=== PATIENT | female | born 1990 | race Caucasian/White ===

== ENCOUNTER 2022-01-23 10:33 | Outpatient (CLI) | payer OTHER, SELFPAY ==
--- NOTE | ~2022-01-23 | US_ITS ---
EXAMINATION: US OB <= 14 weeks fetus DATE: 01/23/2022 11:14 INDICATION: of unknown trimester TECHNIQUE: Real-time pelvic transabdominal and transvaginal ultrasound was performed. COMPARISON: None. FINDINGS: The uterus measures 11.2 x 8.6 x 6.8 cm. There is an intrauterine gestational sac. A yolk sac is identified. heart motion is identified measuring 165 beats per minute (bpm) by M-mode Do ppler. The crown rump length measures 3.7 cm , which correlates with an estimated gestational a ge of 10 weeks and 4 day(s) (+/-) 7 day(s). The ovaries are not visualized however no adnexal abnormality is seen. There is no free fluid in the pelvis. IMPRESSION: 1. Live intrauterine with an estimated gestational age of 10 weeks and 4 day(s) (+/-) 7 day (s) and an estimated delivery date of 08/17/2022. Reviewed, dictated and finalized at location F. ICAL MANAGER IMPRESSION: 1. Live intrauterine with an estimated gestational age of 10 weeks an d 4 day(s) (+/-) 7 day(s) and an estimated delivery date of 08/17/2022.
== END 2022-01-23 10:34 | disposition home or self-care (01) ==
LOC: ANHIMG 10:38
PROVIDERS: Visit Provider Nurse Practitioner
DX: Z36.87 Encounter for antenatal screening for uncertain dates (principal); Z3A.10 10 weeks gestation of pregnancy
CPT/HCPCS: 76801

== ENCOUNTER 2022-03-03 19:09 | Emergency (ER) | payer OTHER, SELFPAY ==
[2022-03-03 19:12] VITALS: BP 139/68; PULSE 90; RESP 16; TEMP 36.1; O2SAT 100
[2022-03-03] MEDS: ACETAMINOPHEN 500 MG TABLET 1000 MG PO (20:11)
[2022-03-03 20:29] LABS: Add Urine Microscopic? YES; Appearance Urine Cloudy (Clear); Bilirubin Urine Negative (Negative); Blood Urine 2+ (Negative); Color Urine Yellow (Yellow); Glucose Urine UA Negative (Negative); Ketones Urine Trace mg/dL (Negative); Leukocyte Esterase Ur Negative LEU/UL (Negative); Mucus Urine Rare /lpf; Nitrate Urine Negative (Negative); Protein Urine Negative (Negative); RBC Urine 0-2 /hpf (0-2); Specific Grav Ur 1.025 (1.001-1.035); Squamous Epithelial Cell Urine Many /hpf (Few); Urobilinogen Urine Negative mg/dL (<2.0); WBC Urine 0-3 /hpf
--- NOTE | 2022-03-03 20:46 | ED.GENADULT ---
HPI - General Adult General Chief complaint: Unspecified Stated complaint: GROIN PAIN. 16WKS PREG Time Seen by Provider: 03/03/22 19:23 History of Present Illness HPI narrative: Patient is a 31-year-old female who presents ER with some pelvic discomfort. Ongoing for last couple days. Unsure if she pulled a muscle in her groin. Worse with bending and walking. Occasionally radiates into the legs. Has not tried any pain medication. No vaginal bleeding or discharge. No abdominal or lower pelvic pain. Patient is 16 weeks . G4, P0. Follows with Dr. Johansen. Patient reports she is recently been on vacation and is done a lot of walking on sand which may have strained some muscles. She also reports she had a fall out of a hammock without injury to her abdomen. She has a known/documented IUP. Related Data Allergies Allergy/AdvReac Type Severity Reaction Status Date / Time NKDA Allergy Unknown Uncoded 05/25/03 13:30 NKFA Allergy Unknown Uncoded 05/25/03 13:30 Review of Systems Review of Systems: All systems reviewed & are unremarkable except as noted in HPI and below Gastrointestinal: Gastrointestinal: Denies abdominal pain, Denies nausea and Denies vomiting Genitourinary: Genitourinary: Denies abnormal vaginal bleeding, Denies nocturia, Denies pelvic pain, Denies vaginal discharge and Denies vaginal pruritus Musculoskeletal: Musculoskeletal: Denies back pain and Denies myalgias Integumentary/Breasts: Skin/Breast: Denies erythema, Denies rash and Denies skin pain Neurologic: Denies focal weakness and Denies numbness PMFSH Past Medical History Medical History (Updated 03/03/22 @ 20:54 by Luis F Mancera MD) Healthy female adult Surgical History Surgical History (Updated 03/03/22 @ 20:54 by Luis F Mancera MD) No pertinent past surgical history Exam Narrative: GENERAL: Well-appearing, well-nourished, and in no acute distress. HEAD: Normocephalic, atraumatic. CHEST: Clear to auscultation. No respiratory distress. HEART: Regular rate and rhythm. Normal peripheral pulses. ABDOMEN: Soft, nontender, nondistended. : Normal-appearing external genitalia, unremarkable speculum exam with normal-appearing cervix and physiologic discharge. No bleeding. No reproducible tenderness with palpation along the perineum or external genitalia. EXTREMITIES: Normal range of motion. No edema. SKIN: Warm, dry, no rash. NEURO: Alert and oriented x3. Course Course Emergency Course: Unremarkable exam. Tylenol given for pain. Patient may have some resultant muscle discomfort from her recent trip. Recommend scheduled Tylenol and follow-up with her [facility]. Vital Signs Vital signs: Vital Signs Temperature 97 F L 03/03/22 19:12 Pulse Rate 90 03/03/22 19:12 Respiratory Rate 16 03/03/22 19:12 Blood Pressure 139/68 03/03/22 19:12 Pulse Oximetry 100 03/03/22 19:12 Temperature 97 F L 03/03/22 19:12 Pulse Rate 90 03/03/22 19:12 Respiratory Rate 16 03/03/22 19:12 Blood Pressure 139/68 03/03/22 19:12 Pulse Oximetry 100 03/03/22 19:12 Medical Decision Making Vital Signs Vital Signs: Vital Signs Temperature 97 F L 03/03/22 19:12 Pulse Rate 90 03/03/22 19:12 Respiratory Rate 16 03/03/22 19:12 Blood Pressure 139/68 03/03/22 19:12 Pulse Oximetry 100 03/03/22 19:12 Temperature 97 F L 03/03/22 19:12 Pulse Rate 90 03/03/22 19:12 Respiratory Rate 16 03/03/22 19:12 Blood Pressure 139/68 03/03/22 19:12 Pulse Oximetry 100 03/03/22 19:12 Lab Data Labs: Lab Results 03/03/22 Range/Units 19:59 Urine Color Yellow (Yellow) Urine Appearance Cloudy H (Clear) Urine pH 5.0 (5.0-9.0) Ur Specific Hume 1.025 (1.001-1.035) Urine Protein Negative (Negative) mg/dL Urine Glucose (UA) Negative (Negative) mg/dL Urine Ketones Trace (Negative) mg/dL Ur Blood (Man) 2+ H (Negative) Urine Nitrate Negative (Negative) Urine B
[2022-03-03 20:57] VITALS: BP 141/88; PULSE 88; RESP 16; O2SAT 97
== END 2022-03-03 20:59 | disposition home or self-care (01) ==
PROVIDERS: Emergency Provider Emergency Medicine
DX: O26.892 Other specified pregnancy related conditions, second trimester (principal); R10.32 Left lower quadrant pain; R10.31 Right lower quadrant pain; Z3A.16 16 weeks gestation of pregnancy
CPT/HCPCS: 81001; 99283; A9270

== ENCOUNTER 2022-04-24 10:07 | Outpatient (CLI) | payer OTHER, SELFPAY ==
[2022-04-24 11:56] LABS: Free T4 Free Thyroxine 0.73 ng/mL (0.78-2.19)
== END 2022-04-24 10:08 | disposition home or self-care (01) ==
LOC: ANHLAB 10:10
PROVIDERS: Visit Provider Obstetrics & Gynecology Gynecology
DX: R94.6 Abnormal results of thyroid function studies (principal)
CPT/HCPCS: 36415; 84439; 84443

== ENCOUNTER 2022-05-22 11:11 | Outpatient (CLI) | payer OTHER, SELFPAY ==
[2022-05-22 11:27] LABS: Hematocrit 32.8 % (37.0-47.0)
[2022-05-22 12:30] LABS: HIV 1/2 Ab P24 Ag Result Negative (Negative)
[2022-05-22 12:34] LABS: Hemoglobin A1C 5.6 % (<5.7)
[2022-05-22 12:39] LABS: Vitamin D 25 Hydroxy 25.8 ng/mL
== END 2022-05-22 11:12 | disposition home or self-care (01) ==
LOC: ANHLAB 11:13
PROVIDERS: Visit Provider Obstetrics & Gynecology Gynecology
DX: Z34.93 Encounter for supervision of normal pregnancy, unspecified, third trimester (principal); Z3A.00 Weeks of gestation of pregnancy not specified
CPT/HCPCS: 36415; 82306; 83036; 85014; 85018; 86703; G0432

== ENCOUNTER 2022-06-11 10:57 | Outpatient (CLI) | payer OTHER, SELFPAY ==
[2022-06-11 11:22] VITALS: BP 138/69; PULSE 111
[2022-06-11 11:31] VITALS: BP 110/68; PULSE 100
[2022-06-11 11:46] VITALS: BP 124/62; PULSE 95
[2022-06-11 12:01] VITALS: BP 120/74; PULSE 102
[2022-06-11 12:19] VITALS: BP 138/69; PULSE 100
[2022-06-11 12:29] LABS: Appearance Urine Slightly Cloudy (Clear); Basophils Percent Auto 0.2 % (0.2-1.2); Bilirubin Urine Negative (Negative); Blood Urine Trace-lysed (Negative); Color Urine Yellow (Yellow); Eosinophils Absolute Auto 0.1 K/mm3 (0-0.3); Eosinophils Percent Auto 0.8 % (0-4.4); Glucose Urine UA Negative (Negative); Hematocrit 35.4 % (37.0-47.0); Hemoglobin 11.4 g/dL (12.0-15.0); Immature Granulocyte Absolute 0.11 K/mm3 (0.00-0.031); Immature Granulocyte Percent A 0.8 % (0-0.5); Ketones Urine Trace mg/dL (Negative); Leukocyte Esterase Ur Negative LEU/UL (NEGATIVE); Lymphocytes Absolute Auto 1.87 K/mm3 (0.9-3.2); Lymphocytes Percent Auto 13.4 % (18.3-44.2); Mean Corpuscular HGB Conc 32.2 g/dl (32-36); Mean Corpuscular Hemoglobin 29.8 pg (26-34); Mean Corpuscular Volume 92.7 fl (80-100); Mean Platelet Volume 9.2 fl (7.4-10.4); Monocytes Absolute Auto 0.8 K/mm3 (0.1-0.6); Monocytes Percent Auto 5.5 % (2.6-8.5); Neutrophils Absolute Auto 11.1 K/mm3 (1.3-6.7); Neutrophils Percent Auto 79.3 % (45.5-73.1); Nitrate Urine Negative (Negative); Platelet Count Result 270 k/mm3 (150-375); Protein Urine Trace mg/dL (Negative); Red Blood Count 3.82 M/mm3 (4.2-5.4); Red Cell Distribution Width 14.3 % (11.5-14.5); Specific Grav Ur 1.025 (1.001-1.035); Urobilinogen Urine 0.2 mg/dL (<2.0)
[2022-06-11 12:35] LABS: Creatinine Urine 105.5 mg/dL; Total Protein Urine Random 17 mg/dL; Ur Ttl Prot Creatinine Ratio 0.16 mg/mg (0-0.20)
[2022-06-11 12:39] LABS: Amorphous Sediment Urine Few; Bacteria Urine Trace /hpf; Mucus Urine Few /lpf; Squamous Epithelial Cell Urine Moderate /hpf (Few); WBC Urine 0-3 /hpf (0-3)
[2022-06-11 12:41] LABS: Add Urine Microscopic? YES; Alanine Aminotransferase 17 U/L (6-35); Albumin Level 3.8 g/dL (3.5-5.1); Alkaline Phosphatase 128 U/L (38-126); Anion Gap 3 mmol/L (8-16); Aspartate Amino Transferase 15 U/L (14-36); Bilirubin,Total 0.2 mg/dL (0.2-1.3); Blood Urea Nitrogen 6 mg/dL (7-17); Calcium 9.5 mg/dL (8.4-10.2); Carbon Dioxide 28 mmol/L (22-30); Chloride 104 mmol/L (98-107); Estimated Glomerular Filt Rate > 60; Glucose 145 mg/dL (65-110); Potassium 3.6 mmol/L (3.4-5.0); Sodium 135 mmol/L (137-145)
[2022-06-11 14:50] VITALS: BP 138/69; PULSE 100
--- NOTE | 2022-06-11 15:06 | PC.NURSE ---
Addendum entered by Kenisha Manzano RN 06/11/22 15:08: Actual time 1339 Original Note: Called Dr. Johansen with lab results, blood pressure, and reactive NST. Orders received to D/C with 24 hour urine.
== END 2022-06-11 14:16 | disposition home or self-care (01) ==
LOC: ANHOBOP 11:05 → ANHOBPP 11:05
PROVIDERS: Visit Provider Obstetrics & Gynecology Gynecology
DX: O36.8190 Decreased fetal movements, unspecified trimester, not applicable or unspecified (principal); Z3A.00 Weeks of gestation of pregnancy not specified
CPT/HCPCS: 36415; 59025; 80053; 81001; 82570; 84156; 84550; 85025; 87086; 99199

== ENCOUNTER 2022-06-12 13:54 | Outpatient (NON) | payer OTHER, SELFPAY ==
[2022-06-12 14:12] VITALS: BMI 53.8
[2022-06-12 15:11] LABS: Collection Time Urine 24 HOURS
[2022-06-12 15:13] LABS: Patient Weight 343 Lbs
[2022-06-12 15:14] LABS: Total Volume 24 Hour Urine 2499 ml
[2022-06-12 15:26] LABS: Creatinine Clearance Urine 136.2 ml/min (75-125); Total Protein Urine 24 Hr 499 mg/24hr (28-141); Total Protein Urine Random 20 mg/dL
== END 2022-06-12 13:55 | disposition home or self-care (01) ==
LOC: ANHOBOP 13:59
PROVIDERS: Visit Provider Obstetrics & Gynecology Gynecology
DX: R51.9 Headache, unspecified (principal)
CPT/HCPCS: 81050; 82575; 84156

== ENCOUNTER 2022-07-06 09:45 | Outpatient (RCR) | payer OTHER, SELFPAY ==
[2022-06-29 12:20] VITALS: BP 133/72; PULSE 88
--- NOTE | ~2022-07-06 | US_ITS ---
EXAMINATION: US OB BPP wo non-stress DATE: 06/29/2022 12:24 INDICATION: Gestational diabetes and hypertension, third trimester TECHNIQUE: Real-time pelvic ultrasound was performed. The interpreting radiologist was not present fo r the study. COMPARISON: None. FINDINGS: There is a single living fetus in breech presentation. The placenta is anterior. heart rate is 148 beats per minute (bpm). Biophysical profile performed by the technologist: breathing (30 sec sustained breathing in 30 minutes): 2 out of 2 movement (3 gross body movements in 30 minutes): 2 out of 2 tone (one episode of paxpxgj-ciojvrazo-qulfukd limb movement): 2 out of 2 Amniotic fluid pocket (2 cm): 2 out of 2 Total score: 8 out of 8 IMPRESSION: 1. Single living fetus in breech presentation. 2. Biophysical profile 8 out of 8. Reviewed, dictated and finalized at location L.
[2022-07-06 10:39] VITALS: BP 128/63; PULSE 89
== END 2022-08-29 10:06 | disposition home or self-care (01) ==
LOC: ANHOBOP 09:45
PROVIDERS: Visit Provider Obstetrics & Gynecology Gynecology
DX: O24.419 Gestational diabetes mellitus in pregnancy, unspecified control (principal); O16.3 Unspecified maternal hypertension, third trimester; O14.93 Unspecified pre-eclampsia, third trimester; Z3A.34 34 weeks gestation of pregnancy
CPT/HCPCS: 59025; 76819

== ENCOUNTER 2022-07-20 11:07 | Outpatient (CLI) | payer OTHER, SELFPAY ==
[2022-07-20 11:31] VITALS: BP 132/77; PULSE 89
[2022-07-20 11:42] LABS: Basophils Percent Auto 0.3 % (0.2-1.2); Eosinophils Absolute Auto 0.1 K/mm3 (0-0.3); Eosinophils Percent Auto 0.5 % (0-4.4); Hematocrit 32.7 % (37.0-47.0); Hemoglobin 10.8 g/dL (12.0-15.0); Immature Granulocyte Absolute 0.04 K/mm3 (0.00-0.031); Immature Granulocyte Percent A 0.3 % (0-0.5); Lymphocytes Absolute Auto 1.55 K/mm3 (0.9-3.2); Lymphocytes Percent Auto 12.9 % (18.3-44.2); Mean Corpuscular Hemoglobin 30.1 pg (26-34); Mean Corpuscular Volume 91.1 fl (80-100); Mean Platelet Volume 9.6 fl (7.4-10.4); Monocytes Absolute Auto 0.9 K/mm3 (0.1-0.6); Monocytes Percent Auto 7.6 % (2.6-8.5); Neutrophils Absolute Auto 9.4 K/mm3 (1.3-6.7); Neutrophils Percent Auto 78.4 % (45.5-73.1); Platelet Count Result 239 k/mm3 (150-375); Red Blood Count 3.59 M/mm3 (4.2-5.4); Red Cell Distribution Width 14.4 % (11.5-14.5)
[2022-07-20 11:46] VITALS: BP 128/70; PULSE 82
[2022-07-20 11:55] LABS: Alanine Aminotransferase 18 U/L (6-35); Albumin Level 3.4 g/dL (3.5-5.1); Alkaline Phosphatase 151 U/L (38-126); Anion Gap 9 mmol/L (8-16); Aspartate Amino Transferase 16 U/L (14-36); Bilirubin,Total 0.2 mg/dL (0.2-1.3); Blood Urea Nitrogen 6 mg/dL (7-17); Calcium 9.2 mg/dL (8.4-10.2); Carbon Dioxide 24 mmol/L (22-30); Chloride 100 mmol/L (98-107); Estimated Glomerular Filt Rate > 60; Glucose 133 mg/dL (65-110); Potassium 3.2 mmol/L (3.4-5.0); Sodium 133 mmol/L (137-145); Uric Acid 3.6 mg/dL (2.5-7.5)
[2022-07-20 12:01] VITALS: BP 152/81; PULSE 87
[2022-07-20 12:16] VITALS: BP 132/84; PULSE 82
--- NOTE | 2022-07-20 12:32 | PC.NURSE ---
Spoke with Dr. Johansen, BP's and labs reviewed. orders to discharge to home with precautions.
== END 2022-07-20 12:33 | disposition home or self-care (01) ==
LOC: ANHOBOP 11:12 → ANHOBPP 11:12
PROVIDERS: Visit Provider Obstetrics & Gynecology Gynecology
DX: O13.9 Gestational [pregnancy-induced] hypertension without significant proteinuria, unspecified trimester (principal); Z3A.00 Weeks of gestation of pregnancy not specified
CPT/HCPCS: 36415; 80053; 84550; 85025; 99199

== ENCOUNTER 2022-07-26 05:02 | Inpatient (IN) | payer OTHER, SELFPAY ==
[2022-07-26] VITALS (210 sets, daily range): BP systolic 90–177; BP diastolic 39–107; PULSE 68–111; TEMP 36.1–36.9; O2SAT 94–100; BMI 55.6
--- NOTE | 2022-07-26 05:02 | LDADM ---
This patient, Nighat Mccauley, was admitted to Labor/Delivery/Recovery 105 on 07/26/22 at 05:02. Plans for labor, pain management and were discussed with patient. Patient/family oriented to hospital policies and general routines including ID bracelet, bed and alarms, visiting hours, pain management, procedures, bathroom and other care routines, personal items, smoking policy, room service/diet and guest tray routines, security routines, and visiting hours. Patient/Family are encouraged to report perceived risks to care and to ask questions if they do not understand what they are told or what they should do. See OBIX for further documentation.
[2022-07-26 06:30] LABS: Basophils Percent Auto 0.2 % (0.2-1.2); Eosinophils Absolute Auto 0.1 K/mm3 (0-0.3); Eosinophils Percent Auto 0.7 % (0-4.4); Hematocrit 32.5 % (37.0-47.0); Hemoglobin 10.5 g/dL (12.0-15.0); Immature Granulocyte Absolute 0.07 K/mm3 (0.00-0.031); Immature Granulocyte Percent A 0.5 % (0-0.5); Lymphocytes Percent Auto 11.9 % (18.3-44.2); Mean Corpuscular HGB Conc 32.3 g/dl (32-36); Mean Corpuscular Hemoglobin 29.1 pg (26-34); Mean Platelet Volume 10.1 fl (7.4-10.4); Monocytes Percent Auto 7.4 % (2.6-8.5); Neutrophils Absolute Auto 10.7 K/mm3 (1.3-6.7); Neutrophils Percent Auto 79.3 % (45.5-73.1); Platelet Count Result 243 k/mm3 (150-375); Red Blood Count 3.61 M/mm3 (4.2-5.4); Red Cell Distribution Width 14.5 % (11.5-14.5); White Blood Count 13.4 K/mm3 (4.5-10.0)
[2022-07-26] MEDS: OXYTOCIN 30 UNITS/NS 500 ML 30 UNITS/500 ML BAG 6 UNITS IV CONT (06:42)
[2022-07-26] MEDS: LACTATED RINGERS 1,000 ML 125 ML IV CONT ×5 (06:42→22:25)
[2022-07-26 06:43] LABS: Alanine Aminotransferase 16 U/L (6-35); Albumin Level 3.2 g/dL (3.5-5.1); Alkaline Phosphatase 135 U/L (38-126); Anion Gap 7 mmol/L (8-16); Aspartate Amino Transferase 23 U/L (14-36); Bilirubin,Total 0.5 mg/dL (0.2-1.3); Blood Urea Nitrogen 7 mg/dL (7-17); Calcium 9.4 mg/dL (8.4-10.2); Carbon Dioxide 25 mmol/L (22-30); Chloride 102 mmol/L (98-107); Estimated CRCL calculation 260 ml/min; Estimated Glomerular Filt Rate > 60; Glucose 150 mg/dL (65-110); Potassium 3.7 mmol/L (3.4-5.0); Sodium 134 mmol/L (137-145); Uric Acid 3.2 mg/dL (2.5-7.5)
[2022-07-26 07:19] LABS: Rapid Plasma Reagin Non-Reactive (NonReactive)
--- NOTE | 2022-07-26 07:45 | WPDOBADMIT ---
Obstetrics - Admit Note Admission Note: record reviewed. No pertinent additions to the history and/or any subsequent changes in the physical findings that are not consistent with the expected course of the were found. Additions to the history and/or subsequent changes in the physical findings follow. Here for MIL at 36 6/7 wks for preeclampsia and GDMA2. Cervix 50/-2 anterior. AROM with clear fluid. FHTs reactive
[2022-07-26 08:38] LABS: Glucose Point of Care 104 mg/dl (65-105)
[2022-07-26 09:48] LABS: Amphetamine Screen Urine Negative (Negative); Barbiturate Screen Urine Negative (Negative); Benzodiazepines Screen Urine Negative (Negative); Cannabinoid Screen Urine Positive (Negative); Cocaine Screen Urine Negative (Negative); Methadone Screen Urine Negative (Negative); Opiate Screen Urine Negative (Negative); Phencyclidine Screen Urine Negative (Negative)
--- NOTE | 2022-07-26 10:40 | WPDANESEPP ---
Anes - Eval Pre Procedure Procedure: Epidural catheter placement Date/Time: 07/26/22 10:40 Surgeon: juan luis Preop Diagnosis: Pain during labor Pre Op Diagnosis: IOL Patient Data Age: 32 Gender: F Height: 1.7 m Weight: 161.25 kg Last Vital Signs Pulse 88 07/26/22 10:31 BP 153/80 H 07/26/22 10:31 O2 Del Method Room Air 07/26/22 06:02 Allergies Allergy/AdvReac Type Severity Reaction Status Date / Time NKDA Allergy Unknown Uncoded 05/25/03 13:30 NKFA Allergy Unknown Uncoded 05/25/03 13:30 Home Medications Medication Instructions Recorded Confirmed Type insulin NPH isoph U-100 human 100 48 ml subcut HS 06/11/22 07/26/22 History unit/mL subcutaneous suspension (Humulin N NPH U-100 Insulin (isophane susp)) valacyclovir 500 mg tablet 500 mg PO BID 07/06/22 07/26/22 History prenat.vits,dalia,ypj-cnai-vzvnn 1 tablet PO DAILY 07/17/22 07/26/22 History famotidine 20 mg tablet 20 mg PO PRN PRN Heartburn 07/26/22 07/26/22 History Laboratory Tests 07/26/22 07/26/22 07/26/22 06:21 06:21 06:21 WBC 13.4 K/mm3 H K/mm3 (4.5-10.0) RBC 3.61 M/mm3 L M/mm3 (4.2-5.4) Hgb 10.5 g/dL L g/dL (12.0-15.0) Hct 32.5 % L % (37.0-47.0) MCV 90.0 fl fl (80-100) MCH 29.1 pg pg (26-34) MCHC 32.3 g/dl g/dl (32-36) RDW 14.5 % % (11.5-14.5) Plt Count 243 k/mm3 k/mm3 (150-375) MPV 10.1 fl fl (7.4-10.4) Immature Gran % (Auto) 0.5 % % (0-0.5) Neut % (Auto) 79.3 % H % (45.5-73.1) Lymph % (Auto) 11.9 % L % (18.3-44.2) [place] % (Auto) 7.4 % % (2.6-8.5) Eos % (Auto) 0.7 % % (0-4.4) Baso % (Auto) 0.2 % % (0.2-1.2) Lymph # (Auto) 1.60 K/mm3 K/mm3 (0.9-3.2) [place] # (Auto) 1.0 K/mm3 H K/mm3 (0.1-0.6) Eos # (Auto) 0.1 K/mm3 K/mm3 (0-0.3) Baso # (Auto) 0.0 K/mm3 K/mm3 (0.0-0.1) Abs Immat Gran (auto) 0.07 K/mm3 H K/mm3 (0.00-0.031) Absolute Neuts (auto) 10.7 K/mm3 H K/mm3 (1.3-6.7) Absolute Nucleated RBC 0.0 K/mm3 K/mm3 (0.0-0.012) Nucleated RBC % 0.0 % % (0.0-0.2) Sodium Potassium Chloride Carbon Dioxide Anion Gap BUN Creatinine Estim Creat Clear Calc Estimated GFR Glucose POC Capillary Glucose Uric Acid Calcium Total Bilirubin AST ALT Alkaline Phosphatase Total Protein Albumin Urine Opiates Screen Urine Methadone Screen Ur Barbiturates Screen Ur Phencyclidine Scrn Ur Amphetamine Screen U Benzodiazepines Scrn Urine Cocaine Screen U Cannabinoids Screen RPR Non-reactive (NonReactive) Blood Type O Positive Antibody Screen Negative 07/26/22 07/26/22 07/26/22 06:21 08:34 09:18 WBC RBC Hgb Hct MCV MCH MCHC RDW Plt Count MPV Immature Gran % (Auto) Neut % (Auto) Lymph % (Auto) [place] % (Auto) Eos % (Auto) Baso % (Auto) Lymph # (Auto) [place] # (Auto) Eos # (Auto) Baso # (Auto) Abs Immat Gran (auto) Absolute Neuts (auto) Absolute Nucleated RBC Nucleated RBC % Sodium 134 mmol/L L mmol/L (137-145) Potassium 3.7 mmol/L mmol/L (3.4-5.0) Chloride 102 mmol/L mmol/L (98-107) Carbon Dioxide 25 mmol/L mmol/L (22-30) Anion Gap 7 mmol/L L mmol/L (8-16)
[2022-07-26 12:22] LABS: Glucose Point of Care 112 mg/dl (65-105)
[2022-07-26 16:51] LABS: Glucose Point of Care 103 mg/dl (65-105)
[2022-07-26 20:54] LABS: Glucose Point of Care 132 mg/dl (65-105)
[2022-07-26 23:13] LABS: Glucose Point of Care 114 mg/dl (65-105)
[2022-07-27] VITALS (157 sets, daily range): BP systolic 106–160; BP diastolic 49–100; PULSE 85–121; RESP 14–23; TEMP 36.8–38.8; O2SAT 89–100
[2022-07-27] MEDS: AMPICILLIN 2 GM/NS 100 ML 2 GM/100 ML BAG IVPB (01:25)
[2022-07-27 01:28] LABS: Glucose Point of Care 136 mg/dl (65-105)
[2022-07-27] MEDS: INSULIN ASPART (*BKC) 100 UNITS/ML 10 UNITS SUB-Q (01:56)
[2022-07-27] MEDS: LACTATED RINGERS 1,000 ML 125 ML IV CONT (03:01)
[2022-07-27 03:58] LABS: Glucose Point of Care 112 mg/dl (65-105)
[2022-07-27 05:04] LABS: Glucose Point of Care 143 mg/dl (65-105)
[2022-07-27] MEDS: AMPICILLIN 1 GM/NS 50 ML 1 GM/50 ML BAG IVPB (05:27)
--- NOTE | 2022-07-27 05:53 | PM.IMHP ---
H&P: HPI History of Present Illness Date/Time: 07/27/22 05:53 Chief Complaint: Failure to progress Narrative: The patient is a 32-year-old 4 para 0 aborta 3 admitted at 36 6/7 weeks for medical induction of labor secondary to preeclampsia and gestational diabetes. The patient's labor initially progressed well with adequate contractions however since approximately midnight the patient has had no further change in cervix and now cervix is edematous. Cervix was 4 to 5 cm and is now 4cm and puffy. In addition the patient has developed chorioamnionitis with a temperature to 102. She was given Tylenol, ampicillin, and gentamicin. heart tones remained tachycardic. It was recommended to proceed with primary for delivery. Patient voices understanding and agrees to proceed. labs O positive, rubella immune, RPR negative, hepatitis-B surface antigen negative, HIV negative, group B strep positive. [facility] Past Medical History Medical History (Updated 07/27/22 @ 06:00 by Tatiana Johansen MD) Asthma Bipolar 1 disorder, depressed GDM, class A2 possible class B diabetes diagnosed at 14 weeks History of COVID-December 23 HSV infection Hypothyroid Surgical History Surgical History (Updated 07/27/22 @ 06:01 by Tatiana Johansen MD) History of elective 2011, 2014, 2015 No pertinent past surgical history Family History Family History Grandparent Endometrial cancer Mother Crohn disease Asthma Chronic obstructive pulmonary disease Ulcerative colitis Grandparent Diabetes mellitus Heart attack S/P CABG x 4 Social History Social History Smoking status: Never smoker Second hand tobacco smoke exposure: Yes Substance use: current Other substance usage details: clean for >1 year of taking Meth,cocaine,narcotic,ETOH Last use: 04/16/22 Spiritual care concerns: No Meds Home Medications and Allergies Home Medications Medication Instructions Recorded Confirmed Type insulin NPH isoph U-100 human 100 48 ml subcut HS 06/11/22 07/26/22 History unit/mL subcutaneous suspension (Humulin N NPH U-100 Insulin (isophane susp)) valacyclovir 500 mg tablet 500 mg PO BID 07/06/22 07/26/22 History prenat.vits,dalia,vhd-xphr-ykfsu 1 tablet PO DAILY 07/17/22 07/26/22 History famotidine 20 mg tablet 20 mg PO PRN PRN Heartburn 07/26/22 07/26/22 History Allergies Allergy/AdvReac Type Severity Reaction Status Date / Time NKDA Allergy Unknown Uncoded 05/25/03 13:30 NKFA Allergy Unknown Uncoded 05/25/03 13:30 Vital Signs Vital Signs - 24 hr 07/26/22 06:01 07/26/22 06:31 07/26/22 07:01 Temperature Pulse Rate 87 93 89 Blood Pressure 126/65 128/80 132/74 Pulse Oximetry Oxygen Delivery 07/26/22 07:31 07/26/22 08:01 07/26/22 09:01 Temperature Pulse Rate 91 84 90 Blood Pressure 131/71 129/76 131/71 Pulse Oximetry Oxygen Delivery 07/26/22 09:31 07/26/22 10:01 07/26/22 10:31 Temperature Pulse Rate 86 85 88 Blood Pressure 138/77 147/80 H 153/80 H Pulse Oximetry Oxygen Delivery 07/26/22 10:46 07/26/22 10:49 07/26/22 10:51 Temperature Pulse Rate 88 90 Blood Pressure 173/85 H 173/94 H Pulse Oximetry 100 97 Oxygen Delivery 07/26/22 10:53 07/26/22 10:56 07/26/22 10:58 Temperature Pulse Rate 88 89 91 Blood Pressure 177/81 H 175/78 H 171/82 H Pulse Oximetry 98 Oxygen Delivery 07/26/22 11:01 07/26/22 11:03 07/26/22 11:06 Temperature Pulse Rate 91 91 91 Blood Pressure 152/88 H 154/91 H 158/85 H Pulse Oximetry 99 100 Oxygen Delivery 07/26/22 11:08 07/26/22 11:11 07/26/22 11:13 Temperature Pulse Rate 89 86 84 Blood Pressure 169/85 H 148/78 H 163/78 H Pulse Oximetry 97 Oxygen Delivery 07/26/22 11:16 07/26/22 11:18 07/26/22 11:21 Temperature
[2022-07-27] MEDS: ceFAZolin 3 GM/D5W 100 ML 100 ML IVPB (06:13)
--- NOTE | 2022-07-27 08:13 | W.PM.PROC2 ---
Procedure Note - Detailed Date of Procedure 07/27/22 Pre-op Diagnosis IUp 37 Failure to progress Chorioamnionitis GDMA2 preeclampsia Post-op Diagnosis Same Procedure Performed Primary LTCS Surgeon Tatiana Johansen MD Anesthesia Epidural and Other (epidural) Findings female OP 7#4oz normal appearing tubes, ovaries, and uterus Description of Procedure Taken to OR and placed in dorsal supine position with leftward tilt. Once anesthesia deemed adequate, prepped and draped with Traxi retractor placed as well. Pfannenstiel incision made with scalpel and fascia nicked in midline. Extended laterally with Hinds scissors. Ochers used to tent fascia and dissected off using sharp and blunt forces. Rectus muscles in midline and peritoneum tented and entered with Metzenbaum. Lester-O retractor placed. Vesicouterine peritoneum tented and entered and extended laterally. Lower uterine transverse incision made with scalpel and extended laterally with blunt traction. Infant in OP position and deep in pervis. Brought head up into incision. Delivered without fundal pressure and infant body quickly delivered. Delayed cord clamping for 30 sec. Initial tone poor but quickly had good tone and grimace. Cord clamped and cut and infant handed to peds. Placenta delivery with manual traction after labs and gases taken. Uterine incision extended to sulcus on right. Allis clamps placed at distal edges. Incision then closed with 0-monocryl in locked manner. Second layer of imbrication with same suture. 3 additional figure of 8 sutures for hemostasis in midline. Hemoderm placed under bladder flap. Good hemostais. Retractor removed. Fascia closed using 0-vicryl in running manner. Subcutaneous tissue irrigated and bovie for hemostasis. Skin closed with 3-0 vicryl in subcuticular manner. Dermaflex and mepilex dressing placed. Sponge, instruments, and needle counts correct per OR staff. Estimated Blood Loss -680.0 Urine Output -100.0 Drains Yes (perez) Pathology Yes (placenta) Complications No immediate complications Condition Stable Disposition Floor
--- NOTE | 2022-07-27 08:31 | PM.OBDSVD ---
DS: Admitting Diagnosis Discharge Date 07/29/22 Admitting Diagnosis IUP 36 6/7 wks for MIL preeclampsia GDMA2 DS: Discharge Diagnosis Discharge Diagnosis (1) delivery delivered: Code(s): O82 - Encounter for delivery without indication Status: Acute (2) Preeclampsia: Code(s): O14.90 - Unspecified pre-eclampsia, unspecified trimester Status: Acute (3) GDM, class A2: Code(s): O24.419 - Gestational diabetes mellitus in , unspecified control Status: Acute (4) Failure to progress in labor: Code(s): O62.2 - Other uterine inertia Status: Acute (5) Drug abuse in remission: Code(s): F19.11 - Other psychoactive substance abuse, in remission Status: Acute (6) 37 weeks gestation of : Code(s): Z3A.37 - 37 weeks gestation of Status: Acute OB - DS: Summary OB Procedures : NST, PIH Mgmt and Ultrasound OB Procedures Intrapartum: low cervical, transverse OB Procedures: : None Peripartum Data Infant Delivery Method: Section Procedures: Procedures Operation Date: 07/27/22 05:45 Actual Procedure Side Surgeon p Section Not Applicable Tatiana Johansen MD Status at Discharge Functional status at discharge: independent ambulation Overall status at discharge: patient is progressing back to baseline Time Spent with Patient Time attestation: Total time spent providing and/or coordinating discharge services: DS: Data Data Completed and Pending Pending studies at discharge: Pending at discharge 07/27/22 06:26 Surgical [PTH] Routine Labs on day of discharge: Labs from last 24 hours 07/27/22 07/27/22 07/27/22 05:01 03:53 01:22 POC Capillary Glucose 143 H 112 H 136 H Urine Opiates Screen Urine Methadone Screen Ur Barbiturates Screen Ur Phencyclidine Scrn Ur Amphetamine Screen U Benzodiazepines Scrn Urine Cocaine Screen U Cannabinoids Screen 07/26/22 07/26/22 07/26/22 23:09 20:51 16:49 POC Capillary Glucose 114 H 132 H 103 Urine Opiates Screen Urine Methadone Screen Ur Barbiturates Screen Ur Phencyclidine Scrn Ur Amphetamine Screen U Benzodiazepines Scrn Urine Cocaine Screen U Cannabinoids Screen 07/26/22 07/26/22 07/26/22 12:19 09:18 08:34 POC Capillary Glucose 112 H 104 Urine Opiates Screen Negative Urine Methadone Screen Negative Ur Barbiturates Screen Negative Ur Phencyclidine Scrn Negative Ur Amphetamine Screen Negative U Benzodiazepines Scrn Negative Urine Cocaine Screen Negative U Cannabinoids Screen Positive A Discharge Plan Discharge Attending physician on discharge: Tatiana Johansen Discharging Clinician: Gadiel Eason Anticipated Discharge Date/Time: 07/30/22 09:09 Patient Disposition: Home, Self-Care Activity: no shower, may drive after 2 weeks and pelvic rest Diet: diabetic Discharge Instructions: Education: Mom and Baby Guide Given to: Mother Follow-Up: Call your delivering provider's office for an appointment to be seen in: 1 Week for incision check and then 6 weeks for check up. Mom and baby should come to the [facility] for the follow-up appointment. Appointment Date/Time: July 31, 2022 at 10:00 am What to expect at your follow-up visit: Blood Pressure Check Physical Assessment Call [phone] if you are unable to keep your appointment time. BREAST CARE: * Wear a snug supportive bra. * For engorgement discomfort: Bottle Feeding: * May apply ice packs EPISIOTOMY/PERINEAL CARE: * Until bleeding stops, use your ella bottle after urinating * Change your pad frequently throughout the day * No tub baths until seen by your physician - You may shower ACTIVITY: * Rest as much as possible. * Do not exercise or lift anything heavier than your baby (suc
[2022-07-27 09:27] LABS: Glucose Point of Care 145 mg/dl (65-105)
--- NOTE | 2022-07-27 10:38 | OBPPTRN ---
0947-Patient transferred to post room #287 via stretcher. Support person present. Oriented to unit, room, information board, rooming in, admission packet and security measures. Patient verbalizes understanding.
[2022-07-27] MEDS: SODIUM CHLORIDE 0.9% IV 1,000 ML 125 ML IV CONT (11:11)
--- NOTE | 2022-07-27 14:15 | PCCCNOTE ---
Consulted for marijuana use. Met with pt. and father of baby at bedside. Pt. confirms marijuana use during . She obtains it socially. She lives with significant other/father of baby and plans to return home with baby girl at discharge. They indicate having family support and all needed items to care for baby girl at discharge. Pt. is current with [facility]. RN indicates history of meth, cocaine and narcotics. Pt. confirms not using any substances other than marijuana during . She states not using cocaine in close to 2 years. She indicates having stopped using on her own and did not go through drug rehab program. RN indicates history of bipolar disorder, depression and anxiety. She does not follow with psychiatry as states psychiatrist just prescribes medications that don't make her feel good. She self medicates with marijuana. She denies history with DCFS. I've reported pt. situation to DCFS and it does not meet criteria for investigation. The information has been documented and will be kept on file. Intake#[id number]. Provided pt. with and counseling resources; encouraged she contact any/all of interest. She states agreement. No other care coordination needs indicated at this time.
[2022-07-27 14:34] LABS: Glucose Point of Care 115 mg/dl (65-105)
[2022-07-27] MEDS: DOCUSATE SODIUM 100 MG CAPSULE PO (17:10)
[2022-07-27 18:57] LABS: Glucose Point of Care 151 mg/dl (65-105)
[2022-07-27] MEDS: HYDROcodone/acetaminophen (*CRX) 5-325 MG TABLET 1 TAB PO (18:57)
[2022-07-27] MEDS: IBUPROFEN 600 MG TABLET PO (18:57)
[2022-07-28 00:30] VITALS: BP 123/72; PULSE 92; RESP 18; TEMP 35.7
[2022-07-28 04:45] VITALS: BP 152/79; PULSE 106; RESP 20; TEMP 36.8
[2022-07-28 04:45] LABS: Glucose Point of Care 110 mg/dl (65-105)
[2022-07-28] MEDS: HYDROcodone/acetaminophen (*CRX) 5-325 MG TABLET 1 TAB PO ×4 (04:46→20:29)
[2022-07-28] MEDS: IBUPROFEN 600 MG TABLET PO ×2 (04:46→16:27)
[2022-07-28 05:55] LABS: Basophils Percent Auto 0.1 % (0.2-1.2); Eosinophils Percent Auto 0.2 % (0-4.4); Hematocrit 31.2 % (37.0-47.0); Hemoglobin 10.1 g/dL (12.0-15.0); Immature Granulocyte Percent A 0.6 % (0-0.5); Lymphocytes Absolute Auto 0.75 K/mm3 (0.9-3.2); Lymphocytes Percent Auto 4.5 % (18.3-44.2); Mean Corpuscular HGB Conc 32.4 g/dl (32-36); Mean Corpuscular Hemoglobin 29.9 pg (26-34); Mean Corpuscular Volume 92.3 fl (80-100); Mean Platelet Volume 10.2 fl (7.4-10.4); Monocytes Absolute Auto 1.1 K/mm3 (0.1-0.6); Monocytes Percent Auto 6.8 % (2.6-8.5); Neutrophils Absolute Auto 14.5 K/mm3 (1.3-6.7); Neutrophils Percent Auto 87.8 % (45.5-73.1); Platelet Count Result 195 k/mm3 (150-375); Red Blood Count 3.38 M/mm3 (4.2-5.4); Red Cell Distribution Width 15.1 % (11.5-14.5); White Blood Count 16.6 K/mm3 (4.5-10.0)
--- NOTE | 2022-07-28 06:38 | P.PNOB_ITS ---
OB - PN: Subj Subjective Date/time seen: 07/28/22 06:38 32-year-old female 1 day status post primary low transverse section. Today she is been up to the bathroom without difficulty urinated. This tole rating regular diet and oral pain medications and her pain is reasonably well controlled. No significant concerns or questions at this time. OB - PN: Obj Data Labs CBC & Chem 7: 07/26/22 06:21 07/26/22 06:21 Labs: Laboratory Results - last 24 hr 07/27/22 07/27/22 07/27/22 09:14 14:21 18:52 POC Capillary Glucose 145 H 115 H 151 H 07/28/22 04:32 POC Capillary Glucose 110 H OB - PN A/P Assessment and Plan (1) delivery delivered: Code(s): O82 - Encounter for delivery without indication Status: Acute Assessment and Plan: will monitor today and if doing well likely will be going home tomorrow. Have discussed postop for limitations as well as to follow-up in office in a week to have bandage removed. Time Spent With Patient Time: Total time spent is greater than 50% in coordination of care (as documented) at patient's floor/unit and/or counseling patient: Exam GI: Inspection: other ( Dressing in place) Auscultation: normal bowel sounds
--- NOTE | 2022-07-28 06:40 | PM.OBDSVD ---
DS: Admitting Diagnosis Discharge Date 07/29/2022 Admitting Diagnosis OB - DS: Summary OB Procedures : None OB Procedures Intrapartum: OB Procedures: : None Peripartum Data Procedures: Procedures Operation Date: 07/27/22 05:45 Actual Procedure Side Surgeon p Section Not Applicable Tatiana Johansen MD Time Spent with Patient Time attestation: Total time spent providing and/or coordinating discharge services: DS: Data Data Completed and Pending Pending studies at discharge: Pending at discharge 07/27/22 06:26 Surgical [PTH] Routine Labs on day of discharge: Labs from last 24 hours 07/28/22 07/28/22 07/27/22 04:33 04:32 18:52 WBC Pending RBC Pending Hgb Pending Hct Pending MCV Pending MCH Pending MCHC Pending RDW Pending Plt Count Pending MPV Pending Immature Gran % (Auto) Pending Neut % (Auto) Pending Lymph % (Auto) Pending [place] % (Auto) Pending Eos % (Auto) Pending Baso % (Auto) Pending Lymph # (Auto) Pending [place] # (Auto) Pending Eos # (Auto) Pending Baso # (Auto) Pending Abs Immat Gran (auto) Pending Absolute Neuts (auto) Pending Absolute Nucleated RBC Pending Nucleated RBC % Pending POC Capillary Glucose 110 H 151 H 07/27/22 07/27/22 14:21 09:14 WBC RBC Hgb Hct MCV MCH MCHC RDW Plt Count MPV Immature Gran % (Auto) Neut % (Auto) Lymph % (Auto) [place] % (Auto) Eos % (Auto) Baso % (Auto) Lymph # (Auto) [place] # (Auto) Eos # (Auto) Baso # (Auto) Abs Immat Gran (auto) Absolute Neuts (auto) Absolute Nucleated RBC Nucleated RBC % POC Capillary Glucose 115 H 145 H Discharge Plan Discharge Attending physician on discharge: Tatiana Johansen Discharging Clinician: Gadiel Eason Anticipated Discharge Date/Time: 07/30/22 09:09 Patient Disposition: Home, Self-Care Activity: no shower, may drive after 2 weeks and pelvic rest Diet: diabetic Patient Instructions: Antibiotic Form Stand Alone Forms: General Discharge Information Follow-up/Referrals: Tatiana Johansen MD [Physician] - 1 Week (and 6 wk) Discharge Medications: New hydrocodone-acetaminophen 5-325 mg Tablet 1 tablet PO Q3H PRN (Reason: Moderate Pain (4-6)) Qty: 30 0RF ibuprofen 600 mg Tablet 600 mg PO Q6H PRN (Reason: Cramping) Qty: 30 0RF Continued valacyclovir 500 mg tablet 500 mg PO BID #2 Tablet 1 tablet PO DAILY famotidine 20 mg Tablet 20 mg PO PRN PRN (Reason: Heartburn) Discontinued Humulin N NPH U-100 Insulin 100 unit/mL suspension 48 ml SUBCUT HS Date of admission: 07/26/22 05:02 Primary Care Provider: PHYSICIAN,ACCOUNTANT CONTROLLER Admitting Provider: Tatiana Johansen Attending physician on admission: Tatiana Johansen Condition: Stable
--- NOTE | 2022-07-28 08:14 | WPDANLDPN2 ---
Anes-Prog Note L&D Date/Time: 07/28/22 08:14 Comfortable throughout: labor and section Neuraxial method: epidural Epidural/Spinal procedure site: clean & non-tender Neuro status: Neuro function grossly intact. Cardiovascular status: normal Respiratory status: normal Airway patency: baseline Mental status: baseline Post-Op hydration status: normal Vital Signs: Last Vital Signs Temp 98.2 F 07/28/22 04:45 Pulse 106 H 07/28/22 04:45 Resp 20 07/28/22 04:45 BP 152/79 H 07/28/22 04:45 Pulse Ox 97 07/27/22 12:21 O2 Del Method Room Air 07/27/22 10:30 Pain score (VAS): 0 I/O: Intake & Output 07/27/22 07/28/22 07/28/22 23:59 07:59 15:59 Intake Total 1540 600 Output Total 1600 2250 Balance -60 -1650 Post-procedural complaints: pruritis mild, no treatment Patient feedback: Patient satisfied with anesthetic care.
--- NOTE | 2022-07-28 08:15 | WPDANLDNPN2 ---
Anes-Prog Note L&D-Neuraxial Date/Time: 07/28/22 08:15 Neuraxial medications: epidural PF morphine Opiod-related complaints: pruritis mild, no treatment Patient feedback: Patient satisfied with post-operative pain management.
[2022-07-28 09:30] VITALS: BP 157/80; PULSE 110; RESP 18; TEMP 36.9; O2SAT 99
[2022-07-28] MEDS: DOCUSATE SODIUM 100 MG CAPSULE PO ×2 (09:46→16:28)
[2022-07-28] MEDS: SIMETHICONE 80 MG TAB.CHEW PO ×2 (09:47→16:28)
[2022-07-28 10:09] LABS: Glucose Point of Care 109 mg/dl (65-105)
[2022-07-28 16:45] LABS: Glucose Point of Care 183 mg/dl (65-105)
[2022-07-28 20:30] VITALS: BP 144/82; PULSE 104; RESP 20; TEMP 36.4
[2022-07-29] MEDS: IBUPROFEN 600 MG TABLET PO (03:49)
[2022-07-29 04:00] VITALS: BP 149/76; PULSE 99
[2022-07-29 07:15] VITALS: BP 137/82; PULSE 89; PULSE 99; RESP 18; RESP 20; TEMP 36.7; O2SAT 99
[2022-07-31 10:02] VITALS: BP 137/74; RESP 20; TEMP 37.2; O2SAT 97
== END 2022-07-29 13:45 | disposition home or self-care (01) | DRG 540 ==
LOC: ANHLDR 07-27 09:15 → ANHOB2 07-29 08:15 → ANHLDR 08-01 11:24 → ANHOB2 08-01 11:24
PROVIDERS: Admitting Provider Obstetrics & Gynecology Gynecology; Visit Provider Obstetrics & Gynecology
PROC: (CPT 59514; principal; 2022-07-27 05:45)
DX: O24.424 Gestational diabetes mellitus in childbirth, insulin controlled (principal); O41.1230 Chorioamnionitis, third trimester, not applicable or unspecified; O98.52 Other viral diseases complicating childbirth; O14.94 Unspecified pre-eclampsia, complicating childbirth; O76 Abnormality in fetal heart rate and rhythm complicating labor and delivery; Z3A.37 37 weeks gestation of pregnancy; Z37.0 Single live birth; O62.2 Other uterine inertia; F19.11 Other psychoactive substance abuse, in remission; B00.9 Herpesviral infection, unspecified; Z91.19 Patient's noncompliance with other medical treatment and regimen; Z86.16 Personal history of COVID-19
CPT/HCPCS: 36415; 80053; 80307; 82948; 84550; 85025; 86592; 86850; 86900; 86901; 88307; A9270; J0131; J0290; J0690; J1580; J1815; J2274; J2590; J2795; J7030; J7120

== ENCOUNTER 2024-05-25 11:02 | Outpatient (CLI) | payer OTHER, SELFPAY ==
[2024-05-25 12:48] LABS: Hepatitis B Surface Antigen Negative (Negative)
[2024-05-25 12:51] LABS: HIV 1/2 Ab P24 Ag Result Negative (Negative)
[2024-05-25 13:05] LABS: Hepatitis C Virus Antibody Negative (Negative)
[2024-05-25 14:08] LABS: Rapid Plasma Reagin Non-Reactive (NonReactive)
== END 2024-05-25 11:03 | disposition home or self-care (01) ==
LOC: ANHLAB 11:06
PROVIDERS: Visit Provider Advanced Practice Midwife
DX: Z11.3 Encounter for screening for infections with a predominantly sexual mode of transmission (principal); Z11.4 Encounter for screening for human immunodeficiency virus [HIV]
CPT/HCPCS: 36415; 86592; 86703; 86803; 87340; G0432